=== PATIENT | male | born 1995 | race Caucasian/White ===

== ENCOUNTER 2017-08-25 13:41 | Emergency (ER) | payer MEDICAID ==
[~2017-08-25] VITALS: Ht 177.8 cm; Wt 82.6 kg
[2017-08-25 13:50] VITALS: BP_SYST 152
[2017-08-25] MEDS ORDERED: IBUPROFEN 800 MG TABLET PO ONE (14:45)
[2017-08-25] MEDS ORDERED: BACITRACIN 1 GM OINT TP ONE (14:45)
[2017-08-25 15:33] VITALS: BP_SYST 142
== END 2017-08-25 15:32 | disposition home or self-care (01) ==
LOC: SED 13:41
DX: L55.0 Sunburn of first degree (principal); F90.9 Attention-deficit hyperactivity disorder, unspecified type; R03.0 Elevated blood-pressure reading, without diagnosis of hypertension
CPT/HCPCS: 99283